=== PATIENT | female | born 1970 | race Caucasian/White ===

== ENCOUNTER 2018-09-13 12:17 | Emergency (ER) | payer OTHER, SELFPAY ==
[2018-09-13 12:19] VITALS: BP 114/73; PULSE 89; RESP 18; TEMP 36.3; O2SAT 99
--- NOTE | 2018-09-13 12:25 | DI.RAD.S_ITS ---
PROCEDURE: XR ANKLE RT MIN 3V INDICATIONS: pain after fall TECHNIQUE: 3 views of the ankle were acquired. COMPARISON: None. FINDINGS: Bones: No fractures or dislocations. Ankle mortise is normally aligned. No suspicious bony lesions. Soft tissues: Mild lateral malleolar soft tissue edema. Achilles tendon appears normal. IMPRESSION: Mild lateral malleolar soft tissue edema. No visualized acute fracture or dislocation. However, if clinical concern and/or pain persist, short interval imaging followup in 7-10 days is recommended, as occult injury cannot be definitively excluded. Dictated by: Sharron Franklin M.D. on 09/13/2018 at 13:13 Approved by: Sharron Franklin M.D. on 09/13/2018 at 13:14
--- NOTE | 2018-09-13 12:25 | DI.RAD.S_ITS ---
PROCEDURE: XR KNEE RT 3V INDICATIONS: pain after fall. TECHNIQUE: 3 views of the knee were acquired. COMPARISON: None. FINDINGS: Bones: There is a comminuted, oblique fracture along the inferior most aspect of the fibular head extending into the proximal fibular diaphysis.. Minimal displacement is noted. No suspicious bony lesions. Soft tissues: Mild joint effusion. No suspicious soft tissue calcifications. IMPRESSION: Mild effusion. Comminuted fracture from the inferior fibular head extending to the proximal fibular diaphysis as above. Dictated by: Sharron Franklin M.D. on 09/13/2018 at 13:12 Approved by: Sharron Franklin M.D. on 09/13/2018 at 13:13
[2018-09-13 13:07] VITALS: BP 118/92; PULSE 64; RESP 16; O2SAT 99
--- NOTE | 2018-09-13 13:23 | PC.NURSE ---
pt walked around the car, door knocked her down, occured last night at 445pm, now with right below the knee pain, has been using ice/elevation/wrap. denies head injury, denies neck or back pain. denies other sxs.
[2018-09-13 14:26] VITALS: BP 132/58; PULSE 78; RESP 14; O2SAT 98
--- NOTE | 2018-09-13 19:47 | ED_ITS ---
HPI - Extremity Injury (Lower) General Chief Complaint: Extremity Injury, Lower Stated Complaint: FALL RT KNEE AND ANKLE INJURY Time Seen by Provider: 09/13/18 12:30 Source: patient Mode of arrival: ambulatory Limitations: no limitations History of Present Illness HPI Narrative: 48-year-old female, nonsmoker and otherwise healthy presents with a chief complaint of right ankle pain since an injury while walking on her icy driveway yesterday. Her chief complaint is of ankle pain is much worse with range of motion or ambulation but she also complains of a bit of lateral knee pain. She states she did not strike her knee on a hard object but merely rolled her ankle. She denies any history of right ankle trouble but has had surgery on her left ankle. She is otherwise well and free of complaint MD complaint: knee injury and ankle injury Onset (ago): day(s) Type of Injury: inversion Place: home Severity: moderate Relieving factors: immobilization Exacerbating factors: weight bearing and movement Context: walking Associated symptoms: snap/pop sensation, swelling and able to partially bear weight Other symptoms: none Treatments prior to arrival: cold therapy Related Data Previous Rx's Medication Instructions Recorded escitalopram oxalate 20 mg PO QDAY #90 tab 05/10/17 doxepin [Silenor] 0 PO HS PRN #30 tab 08/09/17 Allergies Allergy/AdvReac Type Severity Reaction Status Date / Time No Known Drug Allergies Allergy Verified 09/13/18 12:24 Review of Systems Constitutional Denies chills, Denies fever(s), Denies lethargy and Denies weakness Eyes Denies change in vision, Denies eye discharge, Denies irritation and Denies loss of vision ENT Ears, Nose, Mouth, and Throat: Denies change in voice, Denies neck pain and Denies sore throat Cardiovascular Denies chest pain, Denies irregular heart rhythm, Denies lightheadedness, Denies palpitations, Denies dyspnea, Denies dyspnea on exertion and Denies orthopnea Respiratory Denies cough, Denies dyspnea, Denies dyspnea on exertion and Denies wheezing Gastrointestinal Gastrointestinal: Denies abdominal pain, Denies change in bowel habits, Denies diarrhea, Denies nausea and Denies vomiting Genitourinary Denies hematuria, Denies flank pain, Denies urinary incontinence and Denies urin edward urgency Musculoskeletal Reports joint swelling, Reports limited range of motion and Denies neck pain Integumentary/Breasts Denies pruritus, Denies erythema, Denies rash and Denies wounds Neurologic Denies confusion, Denies loss of vision and Denies weakness Psychiatric Denies anxiety, Denies confusion, Denies depression, Denies homicidal ideation and Denies suicidal ideation Endocrine Denies palpitations Hematologic/Lymphatic Denies easy bruising Allergic/Immunologic Denies wheezing PFSH Surgical History History of third molar tooth extraction Status post delivery Status post delivery Status post delivery Status post myringotomy with insertion of tube Status post myringotomy with insertion of tube Status post myringotomy with insertion of tube Family History Father Age: 70 Diabetes mellitus Heart disease Essential hypertension High cholesterol Grandfather Age: 93 High cholesterol Grandmother High cholesterol Mother Age: 69 High cholesterol Social History Smoking Status: Former smoker Family History Father Age: 70 Diabetes mellitus Heart disease Essential hypertension High cholesterol Grandfather Age: 93 High cholesterol Grandmother High cholesterol Mother Age: 69 High cholesterol Social History Smoking Status: Former smoker Exam Narrative Exam Narrative: GEN: AOx3 and in mild distress EYES: Pupils are equal, round, and reactive to light and accommodation. Extraoccular muscles are intact bilaterally. There is no subconjunctival hemorrhage or exudate. CHEST: Lungs are clear to auscultation bilaterally and free of wheezes, rales, or rhonchi. Heart rate is regular rhythm, there are no murmurs, clicks, rubs, or gallops. There is no chest wall tenderness. ABD: Abdomen is soft and nontender. There is no guarding or rebound. Bowel sounds are normal in all 4 quadrants. There is no mass or organomegaly. EXT:Swelling and pain to palpation of right ankle, this is a closed injury with sensation and pulses intact. No obvious or significant deformity. Additionally she has tenderness to palpation of her proximal fibula SKIN: Warm, pink, and dry. No erythema or rash Initial Vital Signs Initial Vital Signs: Vital Signs Temperature 97.3 F L 09/13/18 12:19 Pulse Rate 89 09/13/18 12:19 Respiratory Rate 18 09/13/18 12:19 Blood Pressure 114/73 09/13/18 12:19 Pulse Oximetry 99 09/13/18 12:19 Course Orders Ordered: ED Orders 09/13/18 12:25 XR ankle RT min 3V Stat XR knee RT 3V Stat Consultations Consultation #1: given x-ray findings and evidence of significant inversion injury my suspicion was high for a possible Maisonneuve injury. A call to Orthopedics results in shared concern and suggestion of ankle splint with either sugar-tong or posterior mold, nonweightbearing, and crutches with close follow-up Vital Signs - 8 hr 09/13/18 12:19 09/13/18 13:07 09/13/18 14:26 Temperature 97.3 F L Pulse Rate 89 64 78 Respiratory Rate 18 16 14 Blood Pressure 114/73 Blood Pressure [Right Arm] 118/92 H 132/58 L Pulse Oximetry 99 99 98 Discharge Plan Departure Patient Disposition: Home Clinical Impression: Closed fracture of proximal end of fibula Qualifiers: Encounter type: initial encounter Fracture morphology: other fracture Laterality: right Qualified Code(s): S82.831A - Other fracture of upper and lower end of right fibula, initial encounter for closed fracture Closed Maisonneuve fracture Qualifiers: Encounter type: initial encounter Fracture alignment: nondisplaced Laterality: right Qualified Code(s): S82.864A - Nondisplaced Maisonneuve's fracture of right leg, initial encounter for closed fracture Ankle sprain Qualifiers: Encounter type: initial encounter Involved ligament of ankle: unspecified ligament Laterality: right Qualified Code(s): S93.401A - Sprain of unspecified ligament of right ankle, initial encounter Discharge Date/Time: 09/13/18 14:28 Interventions: ED Discharge Assessment Last Done: 09/13/18 14:27 Instructions: DI for Ankle Sprain, Fibula Shaft Fracture Activity Restrictions/Additional Instructions: *You have been diagnosed with [ proximal fibular head fracture, suspect Maisoonneuve injury pattern ] *What to do: * nonweightbearing until follow-up *Take medications as directed: tylenol / motrin for pain *Follow up with [facility], call for an appointment. Let them know you were seen in the Emergency Department and that we ask that you be seen in follow up *Return to ER if you should have any new, worsening or concerning symptoms, such as [ ] Prescriptions: No Action escitalopram oxalate 20 MG tablet 20 mg PO QDAY Qty: 90 RF: 3 doxepin [Silenor] 3 MG tablet PO HS PRNQty: 30 RF: 0 Referrals: Laisha Stout MD [Physician] - Patsy Ritter ARNP [Primary Care Provider] -
== END 2018-09-13 14:28 | disposition home or self-care (01) ==
PROVIDERS: Emergency Provider Emergency Medicine; Family Provider Surgery; PCP Internal Medicine
DX: S82.831A Other fracture of upper and lower end of right fibula, initial encounter for closed fracture (principal); S82.864A Nondisplaced Maisonneuve's fracture of right leg, initial encounter for closed fracture
CPT/HCPCS: 29515; 73562; 73610; 99283